=== PATIENT | female | born 1990 | race Asian ===

== ENCOUNTER 2018-11-04 12:16 | Emergency (ER) | payer OTHER ==
[2018-11-04] MEDS ORDERED: Ketorolac INJ* 60 MG/2 ML VIAL IM ONE (13:26)
[2018-11-04] MEDS ORDERED: Diazepam TAB(*) 5 MG PO ONE ×2 (13:26→13:27)
--- NOTE | 2018-11-04 13:28 | ED ---
Back Pain - HPI Summary HPI Summary: Patient is a 27-year-old female who presents emergency department for low back pain. Patient states she's had back pain in the past but symptoms worsened over the last few days. She denies falls or significant injury. Patient states today she was unable to walk secondary to pain. She fell she is having spasms to her low back. She denies radicular pain into her legs, numbness, tingling or weakness. She denies bowel or bladder incontinence or retention. She denies fever. She denies past medical history. Symptoms are mild in severity. Movement makes symptoms worse. Rest makes symptoms better. - History of Current Complaint Chief Complaint: EDBackInjuryPain Stated Complaint: BACK PAIN Time Seen by Provider: 11/04/18 12:53 Hx Obtained From: Patient Pain Intensity: 10 - Allergies/Home Medications Allergies/Adverse Reactions: Allergies Allergy/AdvReac Type Severity Reaction Status Date / Time No Known Allergies Allergy Verified 11/04/18 12:26 PMH/Surg Hx/FS Hx/Imm Hx Previously Healthy: Yes Infectious Disease History: No Infectious Disease History: Reports: Traveled Outside the [place] in Last 30 Days - [facility] - Social History Occupation: Student Lives: Dormitory/Roommates Alcohol Use: None Substance Use Type: Reports: None Smoking Status (MU): Never Smoked Tobacco Review of Systems Constitutional: Negative Negative: Fever, Chills Gastrointestinal: Negative Genitourinary: Negative Positive: Other - low back pain Neurological: Negative Negative: Weakness, Paresthesia, Numbness All Other Systems Reviewed And Are Negative: Yes Physical Exam Triage Information Reviewed: Yes Vital Signs On Initial Exam: Initial Vitals Temp Pulse Resp BP Pulse Ox 97.9 F 54 16 126/76 100 11/04/18 12:22 11/04/18 12:22 11/04/18 12:22 11/04/18 12:22 11/04/18 12:22 Vital Signs Reviewed: Yes Appearance: Positive: Pain Distress - Pt. lying in bed, appears uncomfortable but nontoxic. Friend present. Skin: Positive: Warm, Dry Head/Face: Positive: Normal Head/Face Inspection Eyes: Positive: Normal, EOMI Neck: Positive: Supple Musculoskeletal: Positive: Normal, Strength/ROM Intact, Other - 5/5 strength in bilateral LEs with flexion and dorsiflexion. No sensory deficits. Negative straight leg test. No lumbar tenderness to palpation. Neurological: Positive: Normal, CN Intact II-III Psychiatric: Positive: Affect/Mood Appropriate Diagnostics - Vital Signs Vital Signs Temp Pulse Resp BP Pulse Ox 11/04/18 12:22 97.9 F 54 16 126/76 100 - Laboratory Lab Statement: Any lab studies that have been ordered have been reviewed, and results considered in the medical decision making process. Back Pain Course/Dx - Course Course Of Treatment: Pt. presenting for low back pain. Patient states she isn' t too much pain to ambulate. She is afebrile. She has no neurological deficits on exam or evidence of cauda equina syndrome. Given no reproducible pain or recent injuries we'll avoid imaging at this time patient agrees. Patient given a dose of Valium for muscle relaxation and Toradol. 1515: Patient reassessed. She states her pain has improved. Attempted to ambulate. Patient able to stand but states pain is too intense to take steps. Given neck and pain with ambulation we'll obtain CT scan for further evaluation. CT per radiology: IMPRESSION: 1. DEGENERATIVE DISC DISEASE MOST PRONOUNCED AT L4-L5 AND L5-S1. THERE IS A CENTRAL DISC. PROTRUSION AT L4-L5. 2. THERE IS NO SIGNIFICANT NEUROFORAMINAL NARROWING L5-S1. THERE IS NO OSSEOUS CENTRAL. CANAL STENOSIS. Results discussed with patient. She states she is feeling much better than when she came in but is still having some discomfort with ambulation. She has no neurological deficits on exam. Patient is comfortable being discharged home with prescription for prednisone and Valium. Advised to apply warm compresses. Limit exercise until reevaluated by PCP. Gentle stretching. Avoid heavy lifting. Patient to call [facility] today to schedule close follow-up appointment. Patient also given information for neurosurgery. Advised patient to return to the ER for increased pain, leg weakness, numbness, tingling, bowel or bladder incontinence or retention. Patient understands and agrees with plan. - Diagnoses Differential Diagnosis/HQI/PQRI: Positive: Fracture, Herniated Disc, Neoplasm, Strain, Sprain Provider Diagnoses: Intervertebral disc protrusion, Muscle spasm Discharge - Sign-Out/Discharge Documenting (check all that apply): Patient Departure Patient Received Moderate/Deep Sedation with Procedure: No - Discharge Plan Condition: Improved Disposition: HOME Prescriptions: Diazepam TAB(NF) [Valium TAB(NF)] 2 mg PO TID PRN #9 tab MDD 3 PRN Reason: Spasms - Back methylPREDNISolone [Medrol Dosepak 4 MG*] 0 mg PO .SEE ERICK INSTRUCTION #1 tab Patient Education Materials: Lumbar Disc Herniation (ED), Muscle Spasm (ED) Referrals: [facility] [Outside] Ifeoma Weber MD [Medical Doctor] - Additional Instructions: Call [facility] tomorrow to schedule a close follow up appointment Take mediation as directed Avoid heavy lifting Gentle stretching Apply warm compresses Return to ER for increased pain, fever, leg numbness/tingling/weakness, loss of bowel or bladder dysfunction - Billing Disposition and Condition Condition: IMPROVED Disposition: Home
[2018-11-04 17:01] VITALS: BP 97/55
== END 2018-11-04 17:00 | disposition home or self-care (01) ==
LOC: ED 12:16
DX: M51.26 Other intervertebral disc displacement, lumbar region (principal); M62.838 Other muscle spasm; M51.37 Other intervertebral disc degeneration, lumbosacral region
CPT/HCPCS: 72131; 96372; 99282; A9270-GY; J1885